=== PATIENT | female | born 1945 | race Caucasian/White ===

== ENCOUNTER 2019-11-23 10:13 | Emergency (ER) | payer MEDICARE ==
--- NOTE | 2019-11-23 10:17 | ED.PDOC ---
History of Present Illness - General Time Seen by Provider: 11/23/19 10:15 Source: patient, family - History of Present Illness Initial Comments: 73-year-old female with PMH of hypertension, diabetes who is brought in by son-in-law from home for cc of generalized weakness. Patient is poor historian. She states she has been ill for the past week. Reports she has had some episodes of watery diarrhea and vomiting but unable to quantify. Reports very poor appetite and p.o. intake. States she has been getting gradually more weak and is now unable to stand or walk. Denies any fevers, chills, chest pain, cough, shortness of breath, sore throat, abdominal pain, urinary symptoms, leg swelling, headache, body aches. No known recent sick contacts or covert exposures. Son-in-law states he is a tool tender. The patient lives with he and his , her daughter, who helped care for her. They state she lost her about 9 months ago and has lost about 20 pounds since then. She has been off all of her medications for the past 2 to 3 months as her blood pressure and diabetes have been well controlled. Her PCP is Dr. Ricardo. Allergies/Adverse Reactions: Allergies NO KNOWN ALLERGY Allergy (Verified 11/23/19 11:12) Review of Systems - Review of Systems Review of Systems: 11/23/19 10:36 As per HPI All other Systems: Reviewed and Negative Family Medical History - Family History Mother Family History: Unknown Living Status: Physical Exam - Physical Exam General Appearance: Alert, Comfortable, No apparent distress Eye Exam: bilateral normal Ears, Nose, Throat: hearing grossly normal, pharyngeal erythema, tonsillar exudate Neck: non-tender, full range of motion, supple, normal inspection Respiratory: no respiratory distress, no accessory muscle use, other - Faint right basilar crackles noted, otherwise lungs clear to auscultation bilaterally throughout Cardiovascular/Chest: normal peripheral pulses, no edema, no gallop, no JVD, no murmur, tachycardia Peripheral Pulses: radial,right: 2+, radial,left: 2+ Gastrointestinal/Abdominal: non tender, soft, no organomegaly, distended Back Exam: normal inspection, no CVA tenderness, no vertebral tenderness Extremity: normal range of motion, non-tender, normal inspection, no pedal edema, no calf tenderness, normal capillary refill Neurologic: wire spinner II-XII nml as tested, alert, normal mood/affect, motor weakness - Generalized 4/5 strength throughout. No asymmetrical deficit or cranial nerve gross deficit. Fully dependent on nursing staff to transfer from chair to ED bed. Skin Exam: normal color, warm/dry Progress - Progress Progress: 11/23/19 10:38 Acute illness, generalized weakness -Suspect secondary to dehydration from acute illness. Consider COVID-19, gastroenteritis, UTI, strep, pneumonia, other infectious etiology. Consider metabolic derangement, acute kidney injury, ACS, CHF, other. -Obtain blood work, cardiac work-up, COVID-19 and strep swabs, UA -Place PIV, 1 L NS bolus, Zofran 4 mg IV, monitor on telemetry. 11/23/19 11:36 -Critical labs resulted for patient. Lactic acid level is 2.8. Serum glucose is 661. Her anion gap is 29. Drawing stat serum ketones. Total bilirubin level is elevated to 2.5 and alk phos is also elevated. Rapid strep+. X-ray of the abdomen reveals marked distention of several small bowel loops concerning for possible distal small bowel obstruction. Also concern for DKA (vs lactic acidosis as cause of AG metabolic acidosis), sepsis, acute cholecystitis. Obtaining stat CT abdomen/pelvis and drawing blood cultures. Will give regular insulin 5 units IV and begin insulin drip per DKA protocol. We will also give 1 L normal saline with KCl 20 mEq over 2 hours with insulin gtt. anticipate admission versus transfer. 11/23/19 12:40 -CT of the abdomen and pelvis reveals dilated fluid and air-filled loops of small bowel without clear transition point. This is suggestive of small bowel obstruction. -Spoke with Dr. Teixeira, [facility], who accepts the patient for transfer. -We will place NG tube to low intermittent suction. We will begin broad- spectrum IV antibiotics with Vanco and Zosyn. Spoke with the patient and her family and all questions answered. Tae Upton MD Billing #[id number] 11/23/19 10:15 Sodium Chloride 0.9% (Flush) [Saline Flush Syringe] 10 ml IV PRN PRN EKG STAT 11/23/19 10:16 URINALYSIS Stat 11/23/19 10:40 RESPIRATORY PANEL 2 Stat 11/23/19 10:58 CBC (AUTOMATED) W/AUTO DIFF Stat DIFFERENTIAL,MANUAL BY FLAGS Stat 11/23/19 11:34 Hold Metformin x 48Hrs [id number] 11/23/19 11:35 KCl 20 Meq/Ns [NS W/ KCL 20 meq/Liter] 1,000 ml IVS .QD 11/23/19 11:58 BLOOD CULTURE Stat 11/23/19 12:00 Insulin, Reg.(Human) [HumuLIN R] 250 units Sodium Chl 0.9% 250Ml (Lian) [NS 250ml (LIAN)] 247.5 ml IVPB Q12H 11/23/19 12:32 1500MG ONCE ONE (ED ORDER) Vancomycin HCl Inj 1,000 mg Vancomycin HCl Inj 500 mg Sodium Chloride 0.9% 250Ml [NS 250ml] 250 ml IVPB ONCE 11/23/19 12:38 nasogastric [Tube(s):Nasogastric,Insertion] ONCE 11/24/19 09:00 Pulse Ox Daily 11/24/19 10:15 EKG STAT Laboratory Results - last 24 hr 11/23/19 11/23/19 11/23/19 10:40 10:58 10:58 WBC 5.9 RBC 5.68 H Hgb 18.1 H Hct 53.3 H* MCV 93.9 MCH 31.8 H MCHC 33.8 RDW 12.5 Plt Count 285 MPV 8.3 Absolute Neuts (auto) Not Reportable Absolute Lymphs (auto) Not Reportable Absolute Monos (auto) Not Reportable Absolute Eos (auto) Not Reportable Neutrophils % Not Reportable Neutrophils % (Manual) 40.0 L Lymphocytes % Not Reportable Lymphocytes % (Manual) 24.0 Monocytes % Not Reportable Monocytes % (Manual) 3.0 Eosinophils % Not Reportable Basophils % Not Reportable Band Neutrophils 33.0 H* Metamyelocytes 4.0 H Platelet Estimate Normal Normal RBC Morphology Normal rbc morph Sodium 135 Potassium 3.8 Chloride 89 L Carbon Dioxide 17 L Anion Gap 32.8 H BUN 42 H Creatinine 1.17 BUN/Creatinine Ratio 35.9 H Random Glucose 661 H* Serum Osmolality 312.0 H Lactic Acid Calcium 9.5 Total Bilirubin 2.5 H* AST 14 ALT 20 Alkaline Phosphatase 195 H Troponin I B-Natriuretic Peptide 37.7 Serum Total Protein 7.6 Albumin 3.6 Globulin 4.0 H Albumin/Globulin Ratio 0.9 L Serum Ketones Group A Strep Rapid Positive 11/23/19 11/23/19 11/23/19 10:58 10:58 12:00 WBC RBC Hgb Hct MCV MCH MCHC RDW Plt Count MPV Absolute Neuts (auto) Absolute Lymphs (auto) Absolute Monos (auto) Absolute Eos (auto) Neutrophils % Neutrophils % (Manual) Lymphocytes % Lymphocytes % (Manual) Monocytes % Monocytes % (Manual) Eosinophils % Basophils % Band Neutrophils Metamyelocytes Platelet Estimate Normal RBC Morphology Sodium Potassium Chloride Carbon Dioxide Anion Gap BUN Creatinine BUN/Creatinine Ratio Random Glucose Serum Osmolality Lactic Acid 2.8 H* Calcium Total Bilirubin AST ALT Alkaline Phosphatase Troponin I 0.02 B-Natriuretic Peptide Serum Total Protein Albumin Globulin Albumin/Globulin Ratio Serum Ketones Small Group A Strep Rapid - EKG/XRAY/CT EKG: Sinus, Tachy - HR 120, no ST elevations noted, Q waves noted in anterior leads possibly indicative of prior NC, nonspecific T wave inversions noted in aVL, minimal ST segment depressions noted in lead I likely repolarization abnormality, slight left axis deviation noted, intervals normal, no prior EKG for comparison. XRAY: chest - No acute processes in the chest per my read. There is noted large gaseous distention of small bowel loop in the inferior portion of the film. We will follow-up with abdominal x-ray imaging. Departure - Departure Clinical Impression: Small bowel obstruction, Sepsis, DKA (diabetic ketoacidoses), Streptococcal pharyngitis Time of Disposition: 12:39 Disposition: Transfer to Hospital Condition: Serious Departure Forms: ED Discharge - Pt. Copy, Patient Portal Self Enrollment Referrals: Oscar Ricardo MD [Primary Care Provider] - 1-2 Weeks Critical Care Note - Critical Care Note Total Time (mins): 45 Comments: Critical Care Time: Upon my evaluation, this patient had a high probability of life-threatening deterioration due to small bowel obstruction, sepsis, DKA, which required my direct attention, intervention, and management. I have provided 45 minutes of critical care time exclusive of separately billable procedures. My time included: direct patient care, review of labs and radiology, obtaining history from and counseling the patient and the family, discussion with consultants and other medical personnel, documentation, and monitoring for potential decompensation. Transfer to Outside Facility - Transfer Information Decision to Transfer Date: 11/23/19 Decision to Transfer Time: 12:40 Reason for Transfer: ICU Accepting Provider:: Dr. Teixeira Accepting Facility: [facility]
[2019-11-23] MEDS: SODIUM CHLORIDE 0.9% 1000ML 1,000 ML IVS ONE (10:41)
[2019-11-23] MEDS: SODIUM CHLORIDE 0.9% (FLUSH) 10 ML SYG IV PRN (10:42)
[2019-11-23] MEDS: ONDANSETRON INJ 4 MG/2 ML VIAL IV ONE (10:42)
--- NOTE | 2019-11-23 10:42 | RAD ---
EXAM DESCRIPTION: Chest,1 View CLINICAL HISTORY: 73 years Female, weakness COMPARISON: None. FINDINGS: The heart and mediastinum are remarkable for atherosclerosis of the thoracic aorta.. The lung rosario are clear of active infiltrates. The pulmonary vascularity is unremarkable. No active pleural disease is present. There is evidence of previous cholecystectomy. There is moderately severe gaseous distention of the small bowel loop in the left abdominal flank which is incompletely included on the exam. IMPRESSION: 1. No active infiltrates. 2. Moderate severe gaseous distention of the small bowel loop on the left. Further evaluation with an abdominal series may be of benefit. Electronically signed by: Josesito Das MD 11/23/2019 10:40 AM CDT
--- NOTE | 2019-11-23 11:22 | RAD ---
EXAM DESCRIPTION: Abdomen 1 View CLINICAL HISTORY: 73 years Female, abdominal distension, vomiting COMPARISON: None. FINDINGS: There is severe gaseous distention of numerous small bowel loops. A distal small bowel obstruction should be considered. Further evaluation with a CT scan the abdomen and pelvis may be of benefit. There is evidence of previous cholecystectomy. There is no organomegaly. IMPRESSION: 1. Findings suspicious for distal small bowel obstruction. A CT scan of the abdomen and pelvis should be considered for further evaluation. Electronically signed by: Josesito Das MD 11/23/2019 11:20 AM CDT
--- NOTE | 2019-11-23 12:25 | CT ---
EXAM: Abdomen/Pelvis w/Contrast CLINICAL INDICATION: Abdominal distention, vomiting COMPARISON: There is no previous study for comparison. TECHNIQUE: The CT scan was done using contiguous axial 5 mm postcontrast sections through the abdomen and pelvis including IV contrast. This exam was performed according to our departmental dose-optimization program, which includes automated exposure control, adjustment of the mA and/or kV according to patient size and/or use of iterative reconstruction technique. FINDINGS: The visualized portions of the lung bases are clear. The gallbladder is surgically absent. The liver, kidneys, adrenal glands, spleen, and pancreas are unremarkable. The aorta is normal in caliber. There are multiple dilated fluid-filled loops of small bowel consistent with small bowel obstruction. The cause of the obstruction is not clear. There is transition from dilated to nondilated bowel in the mid abdomen anterior to the aorta, series 2, image 42. A right lower quadrant and hernia is noted containing a nondilated portion of terminal ileum. There is no free air, free fluid, or abscess. IMPRESSION: 1. Findings consistent with small bowel obstruction. 2. Right lower quadrant hernia sac containing a portion of nondilated terminal ileum. Electronically signed by: Brandin Altman MD 11/23/2019 12:24 PM CDT
[2019-11-23] MEDS: INSULIN, REG.(HUMAN) 100 U/ML VIAL IV ONE (12:54)
[2019-11-23] MEDS: PIPERACILLIN/TAZOBACTAM 4.5 GM in SODIUM CHLORIDE 0.9% 100ML 100 ML IVPB ONE (12:54)
[2019-11-23] MEDS: KCL 20 MEQ/NS 1,000 ML IVS ONE (12:55)
[2019-11-23] MEDS: INSULIN, REG.(HUMAN) 250 UNITS in SODIUM CHL 0.9% 250ML (AVIVA) 247.5 ML IVPB PRN ×2 (14:00)
[2019-11-23] MEDS: VANCOMYCIN HCL INJ 1,000 MG, VANCOMYCIN HCL INJ 500 MG in SODIUM CHLORIDE 0.9% 250ML 25... IVPB ONE (14:53)
[2019-11-23] MEDS ORDERED: KCL 20 MEQ/NS 1,000 ML IVS PRN (15:00)
[2019-11-23 19:46] VITALS: BP 149/88; TEMP 97.5; O2SAT 98
== END 2019-11-23 15:30 | disposition short-term general hospital (02) ==
LOC: ER 10:13
DX: K56.609 Unspecified intestinal obstruction, unspecified as to partial versus complete obstruction (principal); A41.9 Sepsis, unspecified organism; E11.10 Type 2 diabetes mellitus with ketoacidosis without coma; J02.0 Streptococcal pharyngitis; R00.0 Tachycardia, unspecified; I10 Essential (primary) hypertension; R19.7 Diarrhea, unspecified; R11.10 Vomiting, unspecified
CPT/HCPCS: 36415; 36416; 71045; 74018; 74177; 80053; 81001; 82009; 82947; 82948; 83605; 83880; 84484; 85025; 87040; 87635; 87880; 93005; A4216; J2060; J2405; J2543; J3370; J3480; J7030; J7050

== ENCOUNTER → 2020-06-09 | Outpatient (CLI) | payer MEDICARE | LOC: YCHH 11:50 | PROVIDERS: ATTEND Family Medicine | DX: D64.9 Anemia, unspecified (principal); E11.9 Type 2 diabetes mellitus without complications; E78.5 Hyperlipidemia, unspecified; N18.9 Chronic kidney disease, unspecified ==